=== PATIENT | male | born 1970 | race American Indian/Alaskan Native ===

== ENCOUNTER 2018-12-25 05:25 | Emergency (ER) | payer SELFPAY ==
[2018-12-25] MEDS ORDERED: BACTRIM DS PO STA (06:46)
[2018-12-25] MEDS ORDERED: PERCOCET 5/325 PO STA (06:46)
--- NOTE | 2018-12-25 07:43 | Emergency Department Report ---
HPI - General Chief Complaint: Skin/Abscess/Foreign Body Time Seen by Provider: 12/25/18 07:32 - HPI HPI: 48-year-old male with no prior medical history presents to the ED complaining of swelling and pain to the left, thumb 4-5 days. Patient states the past 3 days he's noticed his left thumb has swollen. Patient denies any trauma or injuries to the finger. He denies fevers/chills/nausea vomiting. She states she is able to bend and use the finger. He denies loss of sensation of the thumb. ED Past Medical Hx - Past Medical History Previous Medical History?: No - Surgical History Past Surgical History?: Yes Additional Surgical History: bilateral knees - Social History Smoking Status: Current Every Day Smoker Substance Use Type: Alcohol, Marijuana - Medications Home Medications: Home Medications Medication Instructions Recorded Confirmed Last Taken Type Ibuprofen [Motrin] 800 mg PO Q8HR PRN #30 tablet 12/25/18 Unknown Rx Sulfamethoxazole/Trimethoprim 1 each PO BID #10 tablet 12/25/18 Unknown Rx [Bactrim DS TAB] cephALEXin [Keflex] 500 mg PO Q12HR #14 cap 12/25/18 Unknown Rx ED Review of Systems ROS: Stated complaint: SWOLLEN LEFT THUMB Other details as noted in HPI Comment: All other systems reviewed and negative Physical Exam - Physical Exam Vital Signs: Vital Signs 12/25/18 05:26 Temperature 98.4 F Pulse Rate 85 Respiratory 18 Rate Blood Pressure 158/109 O2 Sat by Pulse 99 Oximetry Physical Exam: GENERAL: Alert and oriented x3, no apparent distress, Normal Gait, atraumatic. LUNGS: Symetrical with respiration, No wheezing, no rales or crackles, CTAB. HEART: S1, S2 present, regular rate and rhythm without murmur, no rubs, no gallops. Non tender to palpation EXTREMITIES/MUSCULOSKELETAL: No cyanosis, clubbing, rash, lesions or edema. Full ROM bilaterally. Radial Pulses 2+ bilaterally. UE 5+ strength bilaterally, left thumb swelling, tenderness to palpation, nonfluctuant, no sign of paronychia or pus filled. NEUROLOGIC: The patient is cooperative with no focal neurologic deficits. Normal speech. Normal sensation in bilateral upper and lower extremities, No loss of sensation, SKIN: Warm and dry, No lesions, No ulceration or induration present. ED Course Vital Signs 12/25/18 05:26 Temperature 98.4 F Pulse Rate 85 Respiratory 18 Rate Blood Pressure 158/109 O2 Sat by Pulse 99 Oximetry ED Medical Decision Making - Medical Decision Making 48-year-old male presents today phalanx of the left thumb versus paronychia. Patient will be sent home on antibiotic trial dose along with anti-inflammatory. I discussed the patient to apply heat therapy 3 times a day to the thumb. Discussed with patient follow-up is imperative and if he is unable to return to the ED he should follow up with primary care physician. I discussed with him that if any new symptoms or worsening of symptoms such as increasing swelling, fever, loss of sensation to chance ED immediately I discussed with the patient to return in 3-4 days for wound check and possible incision and drainage if needed. I discussed the patient that the thumb may drain on its own after starting antibiotic use. Patient is not endorsing any fever or any signs of secondary infection from the finger. Vital signs are normal. He is in no acute distress. - Differential Diagnosis cellulitis, paronychia, felon Critical care attestation.: If time is entered above; I have spent that time in minutes in the direct care of this critically ill patient, excluding procedure time. ED Disposition Clinical Impression: Felon of finger of left hand Disposition: DC-01 TO HOME OR SELFCARE Is pt being admited?: No Does the pt Need Aspirin: No Condition: Stable Instructions: Paronychia (ED), Heat Pack Application (ED) Additional Instructions: Make sure to follow up with the primary care physician as discussed. Take all your medications as you've been prescribed. Return to the ED in 3 days for wound check and possibly incision and drainage If you have any worsening symptoms or develop new symptoms please return to ED immediately. Prescriptions: cephALEXin [Keflex] 500 mg PO Q12HR #14 cap Ibuprofen [Motrin] 800 mg PO Q8HR PRN #30 tablet PRN Reason: Pain , Severe (7-10) Sulfamethoxazole/Trimethoprim [Bactrim DS TAB] 1 each PO BID #10 tablet Referrals: JERARDO REDMAN MD [Primary Care Provider] - 3-5 Days Forms: Work/School Release Form(ED) Time of Disposition: 08:13
[2018-12-25] MEDS ORDERED: DECADRON IM ONE (07:44)
[2018-12-25 08:36] VITALS: BP 140/90
== END 2018-12-25 08:20 | disposition home or self-care (01) ==
LOC: ED 05:25
DX: L03.012 Cellulitis of left finger (principal); F17.200 Nicotine dependence, unspecified, uncomplicated; F12.10 Cannabis abuse, uncomplicated; Z88.0 Allergy status to penicillin
CPT/HCPCS: 96372; 99282; J1100

== ENCOUNTER 2018-12-27 10:37 | Emergency (ER) | payer SELFPAY ==
--- NOTE | 2018-12-27 11:57 | Emergency Department Report ---
ED Extremity Problem HPI - General Chief complaint: Medical Clearance Stated complaint: FOLLOW UP Time Seen by Provider: 12/27/18 11:46 Source: patient Mode of arrival: Ambulatory Limitations: No Limitations - History of Present Illness Initial comments: Patient is a 48-year-old [place] male who is coming in for repeat visit because of his left thumb. Patient was diagnosed with a felon of the left thumb 2 days ago. Patient has not filled the prescription for antibiotics until today. Patient states he feels as though the NSAIDs are not enough for pain. Patient states swelling is not worse and there is no purulent drainage around the nail. Patient denies any fevers chills nausea vomiting at this time. Patient states the pain is throbbing in nature and is a 8 out of 10 in severity. - Related Data Previous Rx's Medication Instructions Recorded Last Taken Type Ibuprofen [Motrin] 800 mg PO Q8HR PRN #30 tablet 12/25/18 Unknown Rx Sulfamethoxazole/Trimethoprim 1 each PO BID #10 tablet 12/25/18 Unknown Rx [Bactrim DS TAB] cephALEXin [Keflex] 500 mg PO Q12HR #14 cap 12/25/18 Unknown Rx HYDROcodone/APAP 5-325 [[place] 1 each PO Q4HR PRN #12 tablet 12/27/18 Unknown Rx 5/325] Allergies Allergy/AdvReac Type Severity Reaction Status Date / Time Penicillins Allergy Unknown Verified 12/25/18 05:35 ED Review of Systems ROS: Stated complaint: FOLLOW UP Other details as noted in HPI Comment: All other systems reviewed and negative ED Past Medical Hx - Past Medical History Previous Medical History?: No - Surgical History Past Surgical History?: Yes Additional Surgical History: bilateral knees - Social History Smoking Status: Current Every Day Smoker Substance Use Type: Marijuana - Medications Home Medications: Home Medications Medication Instructions Recorded Confirmed Last Taken Type Ibuprofen [Motrin] 800 mg PO Q8HR PRN #30 tablet 12/25/18 Unknown Rx Sulfamethoxazole/Trimethoprim 1 each PO BID #10 tablet 12/25/18 Unknown Rx [Bactrim DS TAB] cephALEXin [Keflex] 500 mg PO Q12HR #14 cap 12/25/18 Unknown Rx HYDROcodone/APAP 5-325 [[place] 1 each PO Q4HR PRN #12 tablet 12/27/18 Unknown Rx 5/325] ED Physical Exam - General Limitations: No Limitations General appearance: alert, in no apparent distress - Head Head exam: Present: atraumatic, normocephalic - Expanded Upper Extremity Exam Left Hand Wrist exam: Present: swelling (patient has swelling to the distal pad of the left thumb. There is no evidence of fluctuance with there is some mild erythema. There is no evidence of any fluctuance around the nail bed.) ED Course Vital Signs 12/27/18 11:09 Temperature 98.4 F Pulse Rate 72 Respiratory 18 Rate Blood Pressure 143/95 O2 Sat by Pulse 99 Oximetry ED Medical Decision Making - Medical Decision Making Patient is to continue the antibiotics that he just filled. Patient has only taken one dose. We'll prescribe Vicodin for the patient for pain. Critical care attestation.: If time is entered above; I have spent that time in minutes in the direct care of this critically ill patient, excluding procedure time. ED Disposition Clinical Impression: Felon of finger of left hand Disposition: DC-01 TO HOME OR SELFCARE Is pt being admited?: No Does the pt Need Aspirin: No Condition: Stable Instructions: Cellulitis (ED) Time of Disposition: 11:57
[2018-12-29 11:55] VITALS: BP 142/95
== END 2018-12-27 12:05 | disposition home or self-care (01) ==
LOC: ED 10:37
DX: L03.012 Cellulitis of left finger (principal); F17.200 Nicotine dependence, unspecified, uncomplicated; F12.10 Cannabis abuse, uncomplicated; Z88.0 Allergy status to penicillin
CPT/HCPCS: 99282